=== PATIENT | female | born 1970 | race Caucasian/White ===

== ENCOUNTER 2019-04-29 17:51 | Outpatient (CLI) | payer MEDICAID | END 2019-04-29 17:52 | disposition critical access hospital (66) | LOC: EMS 17:51 | PROVIDERS: ATTEND Surgery | DX: M79.631 Pain in right forearm (principal); V49.9XXA Car occupant (driver) (passenger) injured in unspecified traffic accident, initial encounter; Y92.414 Local residential or business street as the place of occurrence of the external cause | CPT/HCPCS: A0425; A0429; A0999 ==

== ENCOUNTER 2019-04-29 17:51 | Outpatient (CLI) | payer OTHER, MEDICAID | END 2019-04-29 17:52 | disposition critical access hospital (66) | LOC: EMS 17:51 | PROVIDERS: ATTEND Surgery | DX: M79.631 Pain in right forearm (principal); M79.632 Pain in left forearm; M79.642 Pain in left hand; M79.641 Pain in right hand; V49.9XXA Car occupant (driver) (passenger) injured in unspecified traffic accident, initial encounter; Y92.414 Local residential or business street as the place of occurrence of the external cause | CPT/HCPCS: A0425; A0429 ==

== ENCOUNTER 2019-04-29 18:10 | Emergency (ER) | payer OTHER, MEDICAID ==
[2019-04-29] MEDS ORDERED: HYDROcod/ACETAM 5/325 MG TABLET PO STA (18:15)
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
[2019-04-29 18:25] VITALS: BP 153/117
[2019-04-29] MEDS ORDERED: oxyCODONE 5 MG TABLET PO STA (18:28)
--- NOTE | 2019-04-29 19:11 | XRAY Report ---
Reason: left thumb inj Procedure Date: 04/29/2019 Accession Number: [id number] / [id number] Procedure: XR - Finger(s) LT CPT Code: Final Report FULL RESULT: EXAM: LEFT 1st/2nd/3rd/4th/5th DIGIT RADIOGRAPHY EXAM DATE: 04/29/2019 06:35 PM. CLINICAL HISTORY: Left thumb inj. COMPARISON: None. TECHNIQUE: 3 views. FINDINGS: Bones: There is an ovoid calcification located at the first interphalangeal joint. No definite donor site appreciated. No other focal bony deformity. Joints: Normal. No subluxations. Soft Tissues: Otherwise unremarkable. IMPRESSION: 1. Ovoid calcification at first interphalangeal joint. Suspicious for avulsion chip fracture, acute versus old. RADIA
--- NOTE | 2019-04-29 19:32 | XRAY Report ---
Reason: shoulder inj Procedure Date: 04/29/2019 Accession Number: [id number] / [id number] Procedure: XR - Shoulder 3 View RT CPT Code: Final Report FULL RESULT: EXAM: RIGHT SHOULDER RADIOGRAPHY EXAM DATE: 04/29/2019 07:17 PM. CLINICAL HISTORY: Trauma with shoulder pain COMPARISON: None. TECHNIQUE: 3 views. FINDINGS: Bones: Normal. No fracture or bone lesion. Joints: The glenohumeral and acromioclavicular joints are normal. Soft tissues: The visualized hemithorax is unremarkable. No soft tissue swelling. IMPRESSION: Negative shoulder RADIA
--- NOTE | 2019-04-29 19:35 | XRAY Report ---
Reason: arm inj Procedure Date: 04/29/2019 Accession Number: [id number] / [id number] Procedure: XR - Forearm RT CPT Code: Final Report FULL RESULT: EXAM: RIGHT FOREARM RADIOGRAPHY EXAM DATE: 04/29/2019 07:15 PM. CLINICAL HISTORY: Arm inj. COMPARISON: None. TECHNIQUE: 2 views. FINDINGS: Bones: There is an oblique acute fracture of the distal ulna diaphysis and metaphysis. No displacement. Joints: Normal. No effusions or subluxations in the visualized wrist or elbow joints. Soft Tissues: Normal. No soft tissue swelling. IMPRESSION: 1. Acute nondisplaced fracture of the distal ulna. RADIA
== END 2019-04-29 20:18 | disposition home or self-care (01) ==
LOC: EDBD → EDUNIT# → ED 18:10
DX: S52.601A Unspecified fracture of lower end of right ulna, initial encounter for closed fracture (principal); S62.525A Nondisplaced fracture of distal phalanx of left thumb, initial encounter for closed fracture; V43.52XA Car driver injured in collision with other type car in traffic accident, initial encounter; W22.11XA Striking against or struck by driver side automobile airbag, initial encounter; Y92.410 Unspecified street and highway as the place of occurrence of the external cause; R03.0 Elevated blood-pressure reading, without diagnosis of hypertension
CPT/HCPCS: 29105; 73030; 73090; 73140; 99283; 99284; A9270

== ENCOUNTER 2021-02-01 08:00 | Outpatient (CLI) | payer MEDICAID | END 2021-02-01 23:59 | disposition home or self-care (01) | LOC: LAB.N 08:00 | PROVIDERS: ATTEND Physician Assistant | DX: Z20.822 Contact with and (suspected) exposure to COVID-19 (principal) ==

== ENCOUNTER → 2021-07-11 | Outpatient (CLI) | payer MEDICAID | LOC: LAB 08:00 | PROVIDERS: ATTEND Family Medicine | DX: U07.1 COVID-19 (principal) ==

== ENCOUNTER 2021-12-20 08:00 | Outpatient (CLI) | payer MEDICAID ==
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
== END 2021-12-20 23:59 | disposition home or self-care (01) ==
LOC: DI.N 08:00
PROVIDERS: ATTEND Emergency Medicine
DX: R07.81 Pleurodynia (principal); R89.1 Abnormal level of hormones in specimens from other organs, systems and tissues; R10.9 Unspecified abdominal pain
CPT/HCPCS: 36415; 84702